=== PATIENT | female | born 2000 | race Caucasian/White ===

== ENCOUNTER 2019-08-05 18:37 | Emergency (ER) | payer BC ==
--- OUTSIDE RECORDS SUMMARY | 2019-08-05 19:05 | XMS REPORT | Continuity of Care Document ---
:2000 External Reference #:[id number] Author Name Salazar Nunes M.D. Address [address] [facility] [place] [address] Care Team Providers Name Role Phone Selam Kim Pac Primary Care Physician Unavailable Payers Date Identification Numbers Payment Provider Subscriber Policy Number: [id number] [employer] Horan PayID: [id number] [address] [place] [id number] Problems Active Problems Provider Date Hemorrhage of rectum and anus Salazar Nunes M.D. Onset: 06/16/2019 Constipation Salazar Nunes M.D. Onset: 06/16/2019 Family History Date Family Member(s) Observation Comments General Family History For GI Malignancies Negative Social History Type Date Description Comments Sex Unknown Tobacco Use Start: Unknown Denies Cigarette Use ETOH Use Occasionally consumes alcohol Recreational Drug Use Denies Drug Use Tobacco Use Start: Unknown Patient has never smoked Smoking Status Reviewed: 06/16/19 Patient has never smoked Allergies, Adverse Reactions, Alerts Description No Known Drug Allergies Medications Active Medications SIG Qnty Indications Ordering Provider Date Benefiber 1 tbspf in 12 24Ozs K59.00 Salazar Nunes, 06/16/2019 Powder ozs water twice M.D. a day Drospirenone-Ethinyl Judy, Estradiol Gonzalo Cade 3-0.03mg Tablets ALL Day Allergy 1 by mouth every Unknown 10mg day Tablets Vital Signs Date Vital Result Comment 06/16/2019 11:08am Weight 145.00 lb Height 63 inches 5'3" BP Systolic 118 mmHg BP Diastolic 70 mmHg Heart Rate 72 /min Pain Level 0 O2 % BldC Oximetry 99 % BMI (Body Mass Index) 25.7 kg/m2 Procedures Date Code Description Status 06/16/2019 97054 Pulse Oximetry Single Determination Completed 06/16/2019 99272 Anoscopy Diagnostic Completed Plan of Treatment 06/16/2019 - Salazar Nunes M.D.K59.00 Constipation, unspecifiedNew Medication: Benefiber - 1 tbspf in 12 ozs water twice a dayRecommendations:Benefiber one tablespoonful in a glass of water once or twice a dayK62.5 Hemorrhage of anus and rectumNew Orders:Sigmoidoscopy, Ordered: 06/16/19
[2019-08-05 19:21] VITALS: BP 111/81
--- NOTE | 2019-08-05 19:51 | UC ---
Throat Pain/Nasal Andre HPI - HPI Summary HPI Summary: 19 yo female with sore throat x 1-2 days able to tolerate liquids - History of Current Complaint Chief Complaint: UCRespiratory Stated Complaint: SWOLLEN TONSILS Time Seen by Provider: 08/05/19 19:43 Hx Obtained From: Patient Hx Last Menstrual Period: 07/26/19 Onset/Duration: Gradual Onset, Lasting Days Severity: Moderate Pain Intensity: 8 Pain Scale Used: 0-10 Numeric Cough: None - Epiglottits Risk Factors Epiglottis Risk Factors: Negative - Allergies/Home Medications Allergies/Adverse Reactions: Allergies Allergy/AdvReac Type Severity Reaction Status Date / Time No Known Allergies Allergy Verified 08/05/19 19:21 Home Medications: Home Medications Ethinyl Estradiol/Drospirenone [Drospirenone-Ee 3-0.03 mg Tab] 1 each PO QAM [History Confirmed 08/05/19] Ibuprofen TAB* [Advil TAB*] 200 mg PO Q4H PRN 08/05/19 [History Confirmed ] PMH/Surg Hx/FS Hx/Imm Hx Previously Healthy: Yes - Surgical History Surgical History: None - Family History Known Family History: Positive: Hypertension, Non-Contributory - Social History Alcohol Use: Weekly Alcohol Amount: 2 Substance Use Type: None Smoking Status (MU): Never Smoked Tobacco Review of Systems All Other Systems Reviewed And Are Negative: Yes Constitutional: Positive: Fatigue Skin: Positive: Negative Eyes: Positive: Negative ENT: Positive: Sore Throat Respiratory: Positive: Negative Cardiovascular: Positive: Negative Gastrointestinal: Positive: Negative Genitourinary: Positive: Negative Motor: Positive: Negative Neurovascular: Positive: Negative Musculoskeletal: Positive: Negative Neurological/Mental Status: Positive: Negative Psychological: Positive: Negative Physical Exam Triage Information Reviewed: Yes Appearance: Well-Appearing, No Pain Distress, Well-Nourished Vital Signs: Initial Vital Signs Temp 99.4 F 08/05/19 19:16 Pulse 80 08/05/19 19:16 Resp 18 08/05/19 19:16 BP 111/81 08/05/19 19:16 Pulse Ox 100 08/05/19 19:16 Vital Signs Reviewed: Yes Eyes: Positive: Conjunctiva Clear ENT: Positive: Hearing grossly normal, Tonsillar swelling, Tonsillar exudate, Uvula midline. Negative: Nasal congestion, Nasal drainage, Muffled voice, Hoarse voice, Dental tenderness, Sinus tenderness Dental Exam: Normal Neck: Positive: Supple, Nontender, Enlarged Nodes @ - ant cerv Respiratory: Positive: Lungs clear, Normal breath sounds, No respiratory distress, No accessory muscle use Cardiovascular: Positive: RRR, No Murmur Musculoskeletal: Positive: ROM Intact, No Edema Neurological: Positive: Alert Psychological Exam: Normal Skin Exam: Normal Diagnostics - Laboratory Lab Results: strep + Throat Pain/Nasal Course/Dx - Differential Dx/Diagnosis Provider Diagnosis: Strep throat Discharge ED - Sign-Out/Discharge Documenting (check all that apply): Patient Departure All imaging exams completed and their final reports reviewed: No Studies - Discharge Plan Condition: Stable Disposition: HOME Prescriptions: Amoxicillin PO (*) [Amoxicillin 875 MG (*)] 875 mg PO BID #20 tab Patient Education Materials: Strep Throat (ED) Referrals: No Primary Care Phys,NOPCP [Primary Care Provider] - Additional Instructions: rest fluids tylenol or advil recheck in 3-4 days if not better - Billing Disposition and Condition Condition: STABLE Disposition: Home
== END 2019-08-05 19:59 | disposition home or self-care (01) ==
LOC: UCCORT 18:37
DX: J02.0 Streptococcal pharyngitis (principal); R53.83 Other fatigue
CPT/HCPCS: 87651; 99202; G0463